=== PATIENT | female | born 1945 | race Caucasian/White ===

== ENCOUNTER 2017-12-07 09:04 | Emergency (ER) | payer OTHER ==
[~2017-12-07] VITALS: Ht 167.6 cm; Wt 70.0 kg
[~2017-12-07 09:04] MED LIST: ASPI325T PO; MULT1TAB
[2017-12-07 09:10] VITALS: BP 135/60; PULSE 64; RESP 16; TEMP 98; O2SAT 100
--- NOTE | 2017-12-07 09:38 | PD ---
HPI Chief Complaint: Injury Time Seen by Provider: 09:27 Travel History International Travel<30 days: No Contact w/Intl Traveler<30days: No Traveled to known affect area: No History of Present Illness HPI The patient is a 72-year-old female who presents to the emergency department for left wrist pain. The patient states her 90 pound 2-year-old pit bull knocked her leg out from underneath her earlier today and she fell, landing on her left wrist. The patient complains of pain over the distal aspect left forearm, located around the left wrist, associated with limited range of motion, swelling, and pain. The patient is right-hand dominant. She denies any numbness or tingling of the left hand. She does note moderate discomfort, worse with pain, symptoms are moderate. She denies any head injury , loss of consciousness, or neck pain. The patient is followed by her primary physician, Dr. Anastacio Dejesus. The patient last ate this morning, toast, 1 hour prior to arrival. [facility] Past Medical History Medical History: Denies Significant Hx Diminished Hearing: No Gastrointestinal Disorders: Yes (GERD, HEMORRHOIDS) Medical other: Yes (SHINGLES 06-25-2013) Tetanus Vaccination: < 5 Years ?: Not : 2 Para: 2 Past Surgical History Section: Yes (x2) Gynecologic Surgery: Yes ( X 2) Pacemaker: No Other Surgery: Yes (bilat leg) Social History Alcohol Use: No Tobacco Use: No Substance Use: No Allergies-Medications (Allergen,Severity, Reaction): Coded Allergies: No Known Allergies (Unverified Adverse Reaction, Unknown, 12/07/17) Reported Meds & Prescriptions Reported Meds & Active Scripts Active Reported Centrum Silver Adult 50+ (Multiple Vitamins W/ Minerals) 1 Tab Tab DAILY Review of Systems Except as stated in HPI: all other systems reviewed are Neg HENT: No: Headaches, Neck Pain Cardiovascular: No: Chest Pain or Discomfort Respiratory: No: Shortness of Breath Gastrointestinal: Positive: Nausea (After the pain in the left wrist started) Musculoskeletal: Positive: Limited ROM, Edema, Pain Neurologic: No: Paresthesia, Sensory Disturbance Physical Exam Narrative GENERAL: Awake, alert, very pleasant 72-year-old female who appears her stated age and is in no acute respiratory distress. SKIN: Focused skin assessment warm/dry. HEAD: Atraumatic. Normocephalic. EYES: No injection or drainage. ENT: No nasal bleeding or discharge. Mucous membranes pink and moist. NECK: Trachea midline. No JVD. No tenderness of the cervical vertebrae. CARDIOVASCULAR: Regular rate and rhythm. No murmur appreciated. RESPIRATORY: No accessory muscle use. Clear to auscultation. Breath sounds equal bilaterally. GASTROINTESTINAL: Abdomen soft, non-tender, nondistended. MUSCULOSKELETAL: Deformity of the left wrist noted. Positive left radial pulse. Patient is able to flex and extend the elbow, but is unable to supinate and pronate the forearm. She is unable to flex or extend the left wrist secondary to pain. She is able to move all 5 digits of the left hand. No tenderness of the left clavicle. NEUROLOGICAL: Awake and alert. No obvious cranial nerve deficits. Motor grossly within normal limits. Normal speech. Sensation is intact over the medial, radial, and ulnar distribution in the left upper extremity. PSYCHIATRIC: Appropriate mood and affect; insight and judgment normal. Data Data Last Documented VS Vital Signs Date Time Temp Pulse Resp B/P (MAP) Pulse Ox O2 Delivery O2 Flow Rate FiO2 12/07/17 12:06 68 18 170/90 (116) 100 12/07/17 11:30 3.00 12/07/17 09:10 98.0 Orders Orders Wrist, Complete ([id number]) (12/07/17 ) Propofol 200 Mg/20 Ml Inj (Diprivan 200 (12/07/17 11:00) Sodium Chlor 0.9% 1000 Ml Inj (Ns 1000 M (12/07/17 11:00) Wrist, Limited (Ap&Lat) (12/07/17 ) Ed Discharge Order (12/07/17 12:30) [facility] Medical Decision Making Medical Screen Exam Complete: Yes Emergency Medical Condition: Yes Medical Record Reviewed: Yes Interpretation(s) Last Impressions Wrist X-Ray 12/07/17 0000 Signed Impressions: CONCLUSION: Good position and alignment of the fracture fragments on this postreduction saulo dy. Wrist X-Ray 12/07/17 0000 Signed Impressions: CONCLUSION: 1. There is an acute mildly comminuted transverse fracture through the distal radial metaphysis with dorsal angulation and displacement of the distal fragmen t. As a result, there is mild ulnar positive variance. 2. There is a minimally displaced ulnar styloid fracture versus os styloideum. 3. 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 Differential Diagnosis Differential diagnosis includes fracture, dislocation, contusion, hematoma, sprain, strain. Narrative Course X-ray of the left wrist was obtained. The patient initially declined pain medication. An ice bag was applied to the left wrist. The patient was kept n.p.o. x-ray reveals a distal left wrist fracture with apparent intra-articular involvement. The on-call orthopedist, Dr. Dias, was paged at 10:22 AM. I discussed the patient with DYLLAN Bermudez, who recommends conscious sedation and reduction with post reduction film to evaluate if the patient is to be admitted for definitive surgical management or can be followed up as an outpatient. Therefore, had a discussion with the patient regarding conscious sedation, she understands the risk and benefits. IV was established, IV fluids were started and the patient was placed on cardiac telemetry monitoring and continuous pulse oximetry monitoring. Respiratory therapy, nursing staff, and oven technician for a bedside in the left wrist fracture was reduced after the patient was administered propofol. Postreduction x-ray was obtained. Postreduction x-ray reveals anatomic alignment after reduction. I discussed the patient with the physician clinical services assistant, Aidan, who states the patient can follow up outpatient in 1 week. The patient was advised to follow-up with orthopedic surgeon in 1 week, return if symptoms worsen or progress. Procedures Procedure Narrative After the risks and benefits were discussed the following procedure was performed: MODERATE SEDATION: The patient was placed on a monitor worker and pulse oximetry. An ambu bag and suction was immediately available at bedside. The patient was monitored by the nurse. Oxygen saturation, heart rate and blood pressure were monitored. Procedural sedation was acheived using propofol 75 mg. The patient was observed until awake and alert. Procedural Sedation time in attendance was 35 minutes. The left wrist was reduced after conscious sedation with propofol 75 mg. The wrist was reduced and placed in a sugar tong splint. The patient was neurovascularly intact after reduction. The patient tolerated the procedure without difficulty. Positive left radial pulse after reduction and capillary refill is less than 2 seconds. The patient was able to move all 5 digits of the left hand. Postreduction x-ray was performed. Diagnosis Primary Impression: Left wrist fracture Qualified Codes: S62.102A - Fracture of unspecified carpal bone, left wrist, initial encounter for closed fracture Referrals: Parish Dias MD 1 week Patient Instructions: General Instructions Additional Instructions: Follow-up with Dr. Dias in 1 week. Elevate, ice, splint and sling as directed. Medication as directed. Avoid use in the left upper extremity. Med/Other Pt SpecificInfo: Prescription(s) given Scripts Hydrocodone-Acetaminophen (Cactus) 5 Mg-325 Mg Tab 1 TAB PO Q6H Y for PAIN, #15 TAB 0 Refills Prov: Steven Storey MD 12/07/17 Disposition: 01 DISCHARGE HOME Condition: Stable Steven Storey MD Dec 07, 2017 09:38
--- NOTE | 2017-12-07 10:08 | RADRPT ---
EXAM DATE: 12/07/2017 9:59 AM EDT AGE/SEX: 72 years / Female INDICATIONS: Tripped and fell this morning. CLINICAL DATA: This is the patient's initial encounter. Patient reports that signs and symptoms have been present for 1 day and indicates a pain score of 4/10. MEDICAL/SURGICAL HISTORY: Arthritis. None. COMPARISON: No prior exams available for comparison. FINDINGS: 3 views of the left wrist demonstrate under mineralized bones with a transverse mildly comminuted fra cture of the distal radial metaphysis. Fracture line does not clearly extend into the radiocarpal savage nt. There is associated ulnar positive variance with ulnar styloid fracture versus os styloideum. Car pal bones appear intact. There is moderate osteoarthritis at the first carpometacarpal joint with savage nt space narrowing and osteophytes. There is soft tissue swelling around the wrist joint. CONCLUSION: 1. There is an acute mildly comminuted transverse fracture through the distal radial metaphysis with dorsal angulation and displacement of the distal fragment. As a result, there is mild ulnar positive variance. 2. There is a minimally displaced ulnar styloid fracture versus os styloideum. 3. 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 Electronically signed by: Ivan Moreno MD 12/07/2017 10:06 AM EDT
[2017-12-07] MEDS ORDERED: SODIUM CHLOR 0.9% 1000 ML INJ 1,000 ML IV ONE (11:00)
[2017-12-07] MEDS ORDERED: PROPOFOL 200 MG/20 ML AMP IV ONE (11:00)
[2017-12-07 11:30] VITALS: O2SAT 100
[2017-12-07 12:06] VITALS: BP 170/90; PULSE 68; RESP 18; O2SAT 100
--- NOTE | 2017-12-07 12:22 | RADRPT ---
EXAM DATE: 12/07/2017 12:11 PM EDT AGE/SEX: 72 years / Female INDICATIONS: Post reduction left wrist. CLINICAL DATA: This is the patient's initial encounter. Patient reports that signs and symptoms have been present for 1 day and indicates a pain score of 5/10. MEDICAL/SURGICAL HISTORY: Arthritis. None. COMPARISON: [facility] – [place]ST LEFT COMPLETE ([id number]), 12/07/2017. . FINDINGS: Status post closed reduction of fractures involving the distal radius and ulnar. There is overlying c ast material in place. There is good alignment and position of the fracture fragments. There is good alignment at the radial carpal joint. CONCLUSION: Good position and alignment of the fracture fragments on this postreduction study. Electronically signed by: Cj Castro MD 12/07/2017 12:21 PM EDT
[2017-12-07] MEDS ORDERED: NORC5TAB PO (12:34)
[2017-12-07 12:43] VITALS: BP 165/78
== END 2017-12-07 13:01 | disposition home or self-care (01) ==
LOC: NEPD 09:04
DX: S52.592A Other fractures of lower end of left radius, initial encounter for closed fracture (principal); S52.612A Displaced fracture of left ulna styloid process, initial encounter for closed fracture; K21.9 Gastro-esophageal reflux disease without esophagitis; W18.30XA Fall on same level, unspecified, initial encounter; Z79.899 Other long term (current) drug therapy
CPT/HCPCS: 25605; 73100; 73110; 99285; J7030